=== PATIENT | male | born 1970 ===

== ENCOUNTER 2017-08-28 12:34 | Day surgery (SDC) | payer OTHER, BC ==
[~2017-08-28 12:34] MED LIST: Betamethasone Acetate/Betamethasone Sod Phosphate 30 MG/5 ML MDV ONE; Iopamidol 408 MG/ML 50 ML SDV ONE; Lidocaine 2% 5 ML SDV ONE; Ropivacaine 0.5% 5 MG/ML 30 ML SDV ONE
--- NOTE | 2017-08-28 21:12 | OR ---
SURGEON: Amelia Hinojosa D.O. DATE OF PROCEDURE: 08/28/2017 OR STAFF PRESENT: 1. Luc Stone RN. 2. Sariah Walker RN. 3. RT Dinorah. WOUND CLASSIFICATION: I. PREOPERATIVE DIAGNOSES: 1. Lumbar degenerative disk disease. 2. Lumbar spinal stenosis. 3. Lumbar radiculopathy. POSTOPERATIVE DIAGNOSES: 1. Lumbar degenerative disk disease. 2. Lumbar spinal stenosis. 3. Lumbar radiculopathy. PROCEDURES PERFORMED: 1. Caudal epidural steroid injection. 2. Fluoroscopic guidance for needle placement. 3. Local with oral Valium for sedation. SCREENING QUESTIONS: The patient answered "no" to all of the following questions: 1. Are you allergic to latex? 2. Do you have a bleeding disorder? 3. Do you have any current local or systemic infections? 4. Are you taking any anti-inflammatories or blood thinners? 5. Do you have any joint replacements, heart valve replacements, or a pacemaker? DESCRIPTION OF PROCEDURE: The patient had the procedure thoroughly explained including all possible risks, benefits and alternatives. Consent was signed in my clinic indicating understanding and willingness to proceed. The patient presented to [facility] [place] and was escorted to the dressing room to disrobe and change into a hospital gown. Preoperative vital signs were taken and stable. The patient reported that Valium was taken prior to the procedure. The patient was brought back to the procedure room and placed in the prone position on the procedure room table. A pillow was placed under the hips in order to flatten the lumbar lordosis. The back was prepped with ChloraPrep and sterilely draped. All personnel in the operating room were dressed in appropriate attire including surgical scrubs, head and shoe covers. This was to ensure sterility while in the treatment room. During the time fluoroscopy was in use, all personnel in the operating room wore lead tompkins with thyroid collars. Sterile technique was used throughout the procedure. The patient was awake and conversant throughout the procedure. There was no evidence of infection at the site of needle insertion. Skeletal landmarks were identified under fluoroscopy for the caudal epidural. Skin was anesthetized with 2% lidocaine with a sterile 27-gauge 1.5 inch needle. Then a 20-gauge Tuohy epidural needle was placed in the epidural space with loss of resistance technique under fluoroscopic guidance. No heme, cerebrospinal fluid, or paresthesias were noted. Isovue-200 contrast dye was injected in 0.2 cubic centimeter increments and seen to outline the epidural space in both AP and lateral views. There was no intravascular flow pattern observed under live fluoroscopy. Then 12 milligrams of Celestone was slowly injected after negative aspiration. The patient tolerated the procedure well. Vital signs were stable during and after the procedure. The staff escorted the patient to the recovery area and the patient was released in stable condition after a brief stay in the recovery room monitored by the nurse. The patient was given both oral and written discharge and follow up instructions with recommendation to follow up given for 3 weeks. The patient voiced understanding including understanding of those signs and symptoms that would require emergency care. The patient knows how to contact the office if there are any additional problems or questions in the meantime. PREOPERATIVE PAIN: 10/10. POSTOPERATIVE PAIN: 3/10. FOLLOWUP: Followup in the pain clinic in 3 weeks. ART / JOSEPH /[id number] CORDELL
== END 2017-08-28 14:34 ==
LOC: MW.SDS 12:34
PROVIDERS: ATTEND Anesthesiology
DX: M51.16 Intervertebral disc disorders with radiculopathy, lumbar region (principal); M48.061 Spinal stenosis, lumbar region without neurogenic claudication
CPT/HCPCS: 62323; J0702; J2795; Q9966

== ENCOUNTER 2017-09-27 11:57 | Day surgery (SDC) | payer BC ==
[2017-09-27] MEDS ORDERED: Iopamidol 408 MG/ML 50 ML SDV ONE (14:04)
[2017-09-27] MEDS ORDERED: Betamethasone Acetate/Betamethasone Sod Phosphate 30 MG/5 ML MDV ONE (14:04)
--- NOTE | 2017-09-27 19:38 | OR ---
SURGEON: Amelia Hinojosa D.O. DATE OF PROCEDURE: 09/27/2017 OR STAFF PRESENT: 1. Sariah Rosas. 2. Luc Lopes. 3. Sariah Bennett RN. 4. Benjy Pena RT. WOUND CLASSIFICATION: I. PREOPERATIVE DIAGNOSES: 1. Lumbar degenerative disk disease. 2. Lumbar spinal stenosis. 3. Chronic low back pain. POSTOPERATIVE DIAGNOSES: 1. Lumbar degenerative disk disease. 2. Lumbar spinal stenosis. 3. Chronic low back pain. PROCEDURE PERFORMED: 1. Lumbar interlaminar epidural steroid injection at L4-5. 2. Fluoroscopic guidance for needle placement. 3. Local with oral Valium for sedation. SCREENING QUESTIONS: The patient answered "no" to all of the following questions: 1. Are you allergic to latex? 2. Do you have a bleeding disorder? 3. Do you have any current local or systemic infections? 4. Are you taking any anti-inflammatories or blood thinners? 5. Do you have any joint replacements, heart valve replacements, or a pacemaker? DESCRIPTION OF PROCEDURE: The patient had the procedure thoroughly explained including all possible risks, benefits and alternatives. Consent was signed in my clinic indicating understanding and willingness to proceed. The patient presented to [facility] and was escorted to the dressing room to disrobe and change into a hospital gown. Preoperative vital signs were taken and stable. The patient reported that Valium was taken prior to the procedure. The patient was brought back to the procedure room and placed in the prone position on the procedure room table. A pillow was placed under the hips in order to flatten the lumbar lordosis. The back was prepped with ChloraPrep and sterilely draped. All personnel in the operating room were dressed in appropriate attire including surgical scrubs, head and shoe covers. This was to ensure sterility while in the treatment room. During the time fluoroscopy was in use, all personnel in the operating room wore lead tompkins with thyroid collars. Sterile technique was used throughout the procedure. The patient was awake and conversant throughout the procedure. There was no evidence of infection at the site of needle insertion. Skeletal landmarks were identified under fluoroscopy for the lumbar epidural. Skin was anesthetized with 2% lidocaine with a sterile 27-gauge 1.5 inch needle. Then a 20-gauge Tuohy epidural needle was placed in the epidural space with loss of resistance technique under fluoroscopic guidance. No heme, cerebrospinal fluid, or paresthesias were noted. Isovue-200 contrast dye was injected in 0.2 cubic centimeter increments and seen to outline the epidural space in both AP and lateral views. There was no intravascular flow pattern observed under live fluoroscopy. Then 12 milligrams of Celestone was slowly injected after negative aspiration. The patient tolerated the procedure well. Vital signs were stable during and after the procedure. The staff escorted the patient to the recovery area and the patient was released in stable condition after a brief stay in the recovery room monitored by the nurse. The patient was given both oral and written discharge and follow up instructions with recommendation to follow up given for 2-3 weeks. The patient voiced understanding including understanding of those signs and symptoms that would require emergency care. The patient knows how to contact the office if there are any additional problems or questions in the meantime. PREOPERATIVE PAIN: 10/10. POSTOPERATIVE PAIN: 8/10. FOLLOWUP: Follow up in the Pain Clinic in 3 weeks. ART / JOSEPH /[id number]
== END 2017-09-27 14:14 ==
LOC: MW.SDS 11:57
PROVIDERS: ATTEND Anesthesiology
DX: G89.29 Other chronic pain (principal); M54.5 Low back pain; M51.36 Other intervertebral disc degeneration, lumbar region; M48.061 Spinal stenosis, lumbar region without neurogenic claudication; M47.26 Other spondylosis with radiculopathy, lumbar region; Z88.8 Allergy status to other drugs, medicaments and biological substances; Z79.899 Other long term (current) drug therapy; Z87.891 Personal history of nicotine dependence
CPT/HCPCS: 62323; J0702; Q9966

== ENCOUNTER 2018-02-12 11:52 | Day surgery (SDC) | payer BC, OTHER ==
[~2018-02-12 11:52] MED LIST changes: -Betamethasone Acetate/Betamethasone Sod Phosphate 30 MG/5 ML MDV ONE; -Iopamidol 408 MG/ML 50 ML SDV ONE; -Ropivacaine 0.5% 5 MG/ML 30 ML SDV ONE
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
[2018-02-12] MEDS ORDERED: Lidocaine 2% 5 ML SDV ONE (13:29)
[2018-02-12] MEDS ORDERED: Propofol 200 MG/20 ML SDV ONE (13:30)
[2018-02-12] MEDS ORDERED: fentaNYL 100 MCG/2 ML SDV ONE (13:30)
--- NOTE | 2018-02-12 15:06 | PCM48HPAN ---
Post Anesthesia Note - EVALUATION WITHIN 48HRS OF ANESTHETIC Vital Signs in Normal Range: Yes Patient Participated in Evaluation: Yes Respiratory Function Stable: Yes Airway Patent: Yes Cardiovascular Function Stable: Yes Hydration Status Stable: Yes Pain Control Satisfactory: Yes Nausea and Vomiting Control Satisfactory: Yes Mental Status Recovered: Yes - COMMENTS/OBSERVATIONS Free Text/Narrative:: No anesthesia problems, patient skipped recovery room stage of postoperative care
--- NOTE | 2018-02-12 16:38 | OR ---
SURGEON: Amelia Hinojosa D.O. DATE OF PROCEDURE: 02/12/2018 OR STAFF PRESENT: 1. Ligia Rosas RN. 2. Carmelita Lopes RN. 3. Aury Saunders RT. WOUND CLASSIFICATION: I. PREOPERATIVE DIAGNOSES: 1. Chronic low back pain. 2. Lumbar degenerative disk disease. 3. Lumbar radiculopathy. 4. Chronic pain syndrome. POSTOPERATIVE DIAGNOSES: 1. Chronic low back pain. 2. Lumbar degenerative disk disease. 3. Lumbar radiculopathy. 4. Chronic pain syndrome. PROCEDURES PERFORMED: 1. Spinal cord stimulator trial leads placed as follows: Infinion 16, [employer] 70 cm, 16 contact trial lead placed to the middle of T7 on the right. 2. Infinion 16, [employer] 50 cm, 16 contact trial lead placed to the middle of T7 on the left. 3.. Fluoroscopic guidance for needle placement. ANESTHESIA: MAC SCREENING QUESTIONS: The patient answered no to all the following questions: 1. Are you allergic to iodine, Betadine, or latex? 2. Do you have a bleeding disorder? 3. Are you on anti-inflammatories or blood thinners? 4. Are you ? 5. Do you have any current local or systemic infections? 6. Do you have any joint replacements, heart valve replacements or a pacemaker? DESCRIPTION OF PROCEDURE: The patient had the procedure thoroughly explained including risks, benefits, and alternatives. Consent was signed in my clinic indicating understanding and willingness to proceed. The patient presented to [facility] and was escorted to the dressing room to disrobe and change into a hospital gown. Preoperative history and screening were performed by the nurse. Vital signs were taken and stable. The patient was set up with an IV prior to the procedure. The patient was brought back to the procedure room and placed in the prone position on the procedure room table. A pillow was placed under the abdomen in order to flatten the lumbar lordosis. The patient was positioned comfortably and there was no evidence of infection at the sites of needle insertion. The back was prepped with ChloraPrep and sterilely draped. All personnel in the operating room were dressed in appropriate attire including surgical scrubs, head and shoe covers. This was to ensure sterility while in the treatment room. During the time fluoroscopy was in use, all personnel in the operating room wore lead tompkins with thyroid collars. Sterile technique was used during the procedure. Prior to the start of the procedure, prophylactic antibiotic was administered IV. Skeletal landmarks were identified under fluoroscopic guidance. At all insertion sites, the skin and soft tissues were anesthetized with 2% lidocaine preservative-free with a sterile 27-gauge 1-1/2 inch needle. Then the epidural space was entered with a 14-gauge Tuohy epidural needle with loss-of- resistance technique. Under live fluoroscopic guidance, the 16 standard contact lead electrodes were advanced approximately to the midline at the middle of the T7 vertebral body on the left and then the right. No CSF, no heme, no paresthesia were noted. Testing by the neuromodulation clinical specialist revealed appropriate coverage of the patient's normal areas of pain. The leads were then secured to the skin with occlusive dressing. No complications were noted throughout the procedure and vital signs were stable. Then the patient was brought to the recovery room in stable condition. At that time, the patient had additional stimulation patterns programmed which covered all the normal areas of pain. The patient tolerated the procedure well and was released home with postoperative instructions for followup in the clinic. The patient will fill out a pain diary throughout the week of the spinal cord stimulator trial. Additionally, prior to discharge, postoperative instructions were given to the patient and the patient voiced understanding, including understanding of those signs and symptoms that would require emergency care. PREOPERATIVE PAIN: 06/26. POSTOPERATIVE PAIN: 09/26. FOLLOWUP: Follow up in Pain Clinic tomorrow at 9:00 a.m. ART RUIZ /[id number] CORDELL
--- NOTE | 2018-02-13 10:05 | CR ---
Procedural fluoroscopy. 97.6 seconds of fluoroscopy time was employed for spine procedure. Impression: Procedural fluoroscopy as above
== END 2018-02-12 15:18 ==
LOC: MW.SDS 11:52
PROVIDERS: ATTEND Anesthesiology
DX: G89.4 Chronic pain syndrome (principal); M51.16 Intervertebral disc disorders with radiculopathy, lumbar region; M48.07 Spinal stenosis, lumbosacral region; M51.26 Other intervertebral disc displacement, lumbar region; M47.896 Other spondylosis, lumbar region; I10 Essential (primary) hypertension; Z87.891 Personal history of nicotine dependence; Z88.8 Allergy status to other drugs, medicaments and biological substances
CPT/HCPCS: 63650; J3010; 01936; C1778; J2704